=== PATIENT | male | born 1950 | race Caucasian/White ===

== ENCOUNTER 2017-08-10 16:03 | Emergency (ER) | payer MEDICARE, OTHER ==
--- NOTE | 2017-08-10 16:43 | EDM.PDOC ---
ED HPI GENERAL MEDICAL PROBLEM - General Chief Complaint: Abdominal Pain Stated Complaint: R SIDE ABD PAIN Time Seen by Provider: 08/10/17 16:38 Source of Information: Reports: Patient History Limitations: Reports: No Limitations - History of Present Illness INITIAL COMMENTS - FREE TEXT/NARRATIVE: Patient is a 67-year-old male who presents to presents the ED complaining of right lower quadrant abdominal pain. Symptoms started approximately one week ago. Patient was evaluated this past Saturday with x-ray of the abdomen obtained and started on MiraLAX 2 scoops twice a day for 5 days then one scoop daily. Patient states have become more runny. The pain to his right lower quadrant has persisted. Patient was informed by PCP that this maybe related to his appendix. Patient has been experiencing intermittent fever like symptoms. He was told by his PCP Dr. Henry if he should have any worsening symptoms to come to the ED. Patient states the pain has grown increasingly worse. He's had intermittent episodes of nausea with no emesis. No dysuria, no chest pain, no shortness breath, no body aches, or blood in his stool/urine. He has a history of hernia repair. This was a umbilical hernia with mesh placement. Right Abdomen Pain Score (Numeric/FACES): 6 - Related Data Allergies Allergy/AdvReac Type Severity Reaction Status Date / Time acetaminophen [From Tylenol] Allergy Cannot Verified 12/10/13 14:55 Remember ketoprofen [From Orudis] Allergy Cannot Verified 12/10/13 14:55 Remember Home Meds: Home Meds Aspirin 1 tab PO DAILY 08/10/17 [History] Fish Oil/[place]-3 Fatty Acids [Fish Oil 1,000 MG] 1 each PO DAILY 08/10/17 [ History] Fluticasone Propionate [Flonase] 1 tab PO DAILY 08/10/17 [History] Ibuprofen 600 mg PO BEDTIME 08/10/17 [History] Lisinopril [Prinivil] 10 mg PO DAILY 08/10/17 [History] Loratadine/Pseudoephedrine [Claritin-D 12 Hour] 1 tab PO Q12HR 08/10/17 [History ] Omeprazole Magnesium [Prilosec Otc] 20 mg PO DAILY 08/10/17 [History] Simvastatin 1 tab PO DAILY 08/10/17 [History] Tamsulosin [Tamsulosin 24 Hr] 0.4 mg PO DAILY 08/10/17 [History] Ubidecarenone [Co Q-10] 100 mg PO DAILY 08/10/17 [History] Past Medical History Cardiovascular History: Reports: High Cholesterol, Hypertension Gastrointestinal History: Reports: Chronic Constipation, GERD Genitourinary History: Reports: Other (See Below) Other Genitourinary History: prostate issues Musculoskeletal History: Reports: Arthritis - Past Surgical History HEENT Surgical History: Reports: Naso-Sinus Surgery, Other (See Below) Other HEENT Surgeries/Procedures: ues nasal spray prn GI Surgical History: Reports: Hernia, Abdominal Social & Family History - Tobacco Use Smoking Status *Q: Never Smoker - Caffeine Use Caffeine Use: Reports: Coffee, Soda - Recreational Drug Use Recreational Drug Use: No ED ROS GENERAL - Review of Systems Review Of Systems: ROS reveals no pertinent complaints other than HPI. ED EXAM, GI/ABD - Physical Exam Exam: See Below Exam Limited By: No Limitations General Appearance: Alert, WD/WN, No Apparent Distress Ears: Hearing Grossly Normal Nose: Normal Inspection Throat/Mouth: Normal Inspection, Normal Oropharynx, Normal Voice, No Airway Compromise Head: Atraumatic, Normocephalic Neck: Normal Inspection, Supple Respiratory/Chest: No Respiratory Distress, Lungs Clear, Normal Breath Sounds, No Accessory Muscle Use, Chest Non-Tender Cardiovascular: Normal Peripheral Pulses, Regular Rate, Rhythm GI/Abdominal Exam: Normal Bowel Sounds, Soft, No Organomegaly, No Distention, Tender (Positive McBurney's point. Negative Harrell sign.) (Male) Exam: Deferred (No discomfort to the testicles or scrotum.) Rectal (Males) Exam: Deferred (No blood within the stool.) Back Exam: Normal Inspection. No: CVA Tenderness (L), CVA Tenderness (R) Extremities: Normal Inspection, Normal Range of Motion, Non-Tender, No Pedal Edema Neurological: Alert, Oriented, CN II-XII Intact, Normal Cognition, No Motor/ Sensory Deficits Psychiatric: Normal Affect, Normal Mood Skin Exam: Warm, Dry, Intact, Normal Color Course - Vital Signs Last Recorded V/S: Last Vital Signs Temp 97.0 F 08/10/17 16:19 Pulse 65 08/10/17 16:19 Resp 20 08/10/17 16:19 BP 155/93 H 08/10/17 16:19 Pulse Ox 97 08/10/17 16:19 - Orders/Labs/Meds Orders: Active Orders 24 hr Category Date Time Status Peripheral IV Care [RC] . DIRECTED Care 08/10/17 16:44 Active UA W/MICROSCOPIC [URIN] Stat Lab 08/10/17 17:30 Ordered Peripheral IV Insertion Adult [OM.PC] Stat Oth 08/10/17 16:43 Ordered Labs: Laboratory Tests 08/10/17 08/10/17 08/10/17 Range/Units 17:30 17:30 17:30 WBC 6.83 (4.23-9.07) K/mm3 RBC 5.17 (4.63-6.08) M/mm3 Hgb 15.5 (13.7-17.5) gm/L Hct 45.9 (40.1-51.0) % MCV 88.8 (79.0-92.2) fl MCH 30.0 (25.7-32.2) pg MCHC 33.8 (32.2-35.5) g/dl RDW Std Deviation 42.2 (35.1-43.9) fL Plt Count 264 (163-337) K/mm3 MPV 9.5 (9.4-12.3) fl Neutrophils % (Manual) 61 H (40-60) % Band Neutrophils % 0 (0-10) % Lymphocytes % (Manual) 27 (20-40) % Atypical Lymphs % 0 % Monocytes % (Manual) 6 (2-10) % Eosinophils % (Manual) 4 (0.8-7.0) % Basophils % (Manual) 2 H (0.2-1.2) Platelet Estimate Adequate RBC Morph Comment Normal Sodium 143 (136-145) mEq/L Potassium 4.1 (3.5-5.1) mEq/L Chloride 107 (98-107) mEq/L Carbon Dioxide 26 (21-32) mEq/L Anion Gap 14.1 (5-15) BUN 14 (7-18) mg/dL Creatinine 1.3 (0.7-1.3) mg/dL Est Cr Clr Drug Dosing 60.34 mL/min Estimated GFR (MDRD) 55 (>60) mL/min BUN/Creatinine Ratio 10.8 L (14-18) Glucose 93 (80-115) mg/dL Calcium 9.1 (8.5-10.1) mg/dL Total Bilirubin 0.9 (0.2-1.0) mg/dL AST 24 (15-37) U/L ALT 33 (16-63) U/L Alkaline Phosphatase 83 (46-116) U/L C-Reactive Protein (<1.0) mg/dL Total Protein 7.8 (6.4-8.2) g/dl Albumin 4.4 (3.4-5.0) g/dl Globulin 3.4 gm/dL Albumin/Globulin Ratio 1.3 (1-2) Urine Color Yellow (Yellow) Urine Appearance Clear (Clear) Urine pH 6.5 (5.0-8.0) Ur Specific [place] > or = 1.030 (1.005-1.030) Urine Protein Negative (Negative) Urine Glucose (UA) Negative (Negative) Urine Ketones Negative (Negative) Urine Occult Blood Negative (Negative) Urine Nitrite Negative (Negative) Urine Bilirubin Negative (Negative) Urine Urobilinogen 0.2 (0.2-1.0) Ur Leukocyte Esterase Negative (Negative) Urine RBC 0-5 (0-5) /hpf Urine WBC 0-5 (0-5) /hpf Ur Epithelial Cells 0-5 (0-5) /hpf Urine Bacteria Occasional (FEW) /hpf Urine Mucus Moderate H (FEW) /hpf 08/10/17 Range/Units 17:30 WBC (4.23-9.07) K/mm3 RBC (4.63-6.08) M/mm3 Hgb (13.7-17.5) gm/L Hct (40.1-51.0) % MCV (79.0-92.2) fl MCH (25.7-32.2) pg MCHC (32.2-35.5) g/dl RDW Std Deviation (35.1-43.9) fL Plt Count (163-337) K/mm3 MPV (9.4-12.3) fl Neutrophils % (Manual) (40-60) % Band Neutrophils % (0-10) % Lymphocytes % (Manual) (20-40) % Atypical Lymphs % % Monocytes % (Manual) (2-10) % Eosinophils % (Manual) (0.8-7.0) % Basophils % (Manual) (0.2-1.2) Platelet Estimate RBC Morph Comment Sodium (136-145) mEq/L Potassium (3.5-5.1) mEq/L Chloride (98-107) mEq/L Carbon Dioxide (21-32) mEq/L Anion Gap (5-15) BUN (7-18) mg/dL Creatinine (0.7-1.3) mg/dL Est Cr Clr Drug Dosing mL/min Estimated GFR (MDRD) (>60) mL/min BUN/Creatinine Ratio (14-18) Glucose (80-115) mg/dL Calcium (8.5-10.1) mg/dL Total Bilirubin (0.2-1.0) mg/dL AST (15-37) U/L ALT (16-63) U/L Alkaline Phosphatase (46-116) U/L C-Reactive Protein 0.5 (<1.0) mg/dL Total Protein (6.4-8.2) g/dl Albumin (3.4-5.0) g/dl Globulin gm/dL Albumin/Globulin Ratio (1-2) Urine Color (Yellow) Urine Appearance (Clear) Urine pH (5.0-8.0) Ur Specific [place] (1.005-1.030) Urine Protein (Negative) Urine Glucose (UA) (Negative) Urine Ketones (Negative) Urine Occult Blood (Negative) Urine Nitrite (Negative) Urine Bilirubin (Negative) Urine Urobilinogen (0.2-1.0) Ur Leukocyte Esterase (Negative) Urine RBC (0-5) /hpf Urine WBC (0-5) /hpf Ur Epithelial Cells (0-5) /hpf Urine Bacteria (FEW) /hpf Urine Mucus (FEW) /hpf Meds: Medications Discontinued Medications Generic Name Dose Route Start Last Admin Trade Name Freq PRN Reason Stop Dose Admin Diatrizoate Meglum/Diatrizoate Sod 90 ml 08/10/17 18:13 08/10/17 18:53 Gastrografin 37% PO 08/10/17 18:14 90 ml ONETIME ONE Administration Sodium Chloride 1,000 mls @ 150 mls/hr 08/10/17 16:45 08/10/17 17:34 Normal Saline IV 150 mls/hr ASDIRECTED NAVYA Administration Sodium Chloride 250 mls @ 80 mls/hr 08/10/17 18:15 08/10/17 18:54 Normal Saline IV 80 mls/hr ASDIRECTED NAVYA Administration Iopamidol 100 ml 08/10/17 18:13 08/10/17 18:53 Isovue-370 (76%) IVPUSH 08/10/17 18:14 100 ml ONETIME ONE Administration Iopamidol 25 ml 08/10/17 18:13 08/10/17 18:54 Isovue-370 (76%) IVPUSH 08/10/17 18:14 25 ml ONETIME ONE Administration Sodium Chloride 10 ml 08/10/17 16:43 08/10/17 18:55 Saline Flush FLUSH 10 ml ASDIRECTED PRN Administration Keep Vein Open - Re-Assessments/Exams Free Text/Narrative Re-Assessment/Exam: Peripheral IV started with IV fluids. Initial labs and studies will include: CBC, chem 14, CRP, and UA. Labs reviewed: CBC and chemistry panel essentially normal. CRP 0.5. UA was negative for any concerning findings. 08/10/17 19:33 CT abdomen and pelvis impression: Findings which are felt to be incidental as described above. Nothing acute is appreciated on CT study of the abdomen and pelvis. Discussed labs and CT findings with the patient. We'll discharge patient home with instructions as documented. Departure - Departure Time of Disposition: 19:34 Disposition: Home, Self-Care 01 Condition: Good Clinical Impression: Abdominal pain in male - Discharge Information Instructions: Abdominal Pain, Adult, [id number] Referrals: Ezequiel Quiroz MD [Primary Care Provider] - Forms: ED Department Discharge Additional Instructions: Follow-up with PCP this following week. Continue taking the MiraLAX. Suggest decreasing the dose to one capful twice a day to see if this improves or diarrhea. Push the fluids. Refrain from any activities that cause worsening pain. Return to the ED if you develop any new or worsening symptoms. - My Orders Last 24 Hours: My Active Orders 08/10/17 16:43 Peripheral IV Insertion Adult [OM.PC] Stat 08/10/17 16:44 Peripheral IV Care [RC] . DIRECTED 08/10/17 17:30 UA W/MICROSCOPIC [URIN] Stat - Assessment/Plan Last 24 Hours: My Active Orders 08/10/17 16:43 Peripheral IV Insertion Adult [OM.PC] Stat 08/10/17 16:44 Peripheral IV Care [RC] . DIRECTED 08/10/17 17:30 UA W/MICROSCOPIC [URIN] Stat
[2017-08-10] MEDS ORDERED: Sodium Chloride 0.9% 1,000 ML IV SCH (16:45)
[2017-08-10] MEDS: Sodium Chloride 0.9% 10 ML Syringe FLUSH PRN ×2 (17:35→18:55)
[2017-08-10] MEDS ORDERED: Diatrizoate Meglumine/Diatrizoate Sodium 37% 120 ML Bottle PO ONE (18:13)
[2017-08-10] MEDS ORDERED: Iopamidol 755 MG/ML 50 ML Bottle IVPUSH ONE (18:13)
[2017-08-10] MEDS ORDERED: Iopamidol 755 Mg/ML 100 ML Bottle IVPUSH ONE (18:13)
[2017-08-10] MEDS ORDERED: Sodium Chloride 0.9% 250 ML IV SCH (18:15)
--- NOTE | 2017-08-10 19:18 | CT ---
CT abdomen and pelvis Technique: Multiple axial sections were obtained from above the dome of the diaphragm inferiorly through the pubic symphysis. Intravenous and oral contrast was utilized. Comparison: No prior CT exam of the abdomen or pelvis. Findings: Slight atelectasis or scarring is seen within the left lung base. Liver shows no focal parenchymal abnormality. Spleen appears within normal limits. Adrenal glands show no nodule. Pancreas is within normal limits. 3 low density findings seen within the left kidney. 2 of these have Hounsfield unit measurements of cysts. Third lesion does not have Hounsfield unit measurements of a cyst but most likely represents a slightly hemorrhagic cyst. Largest cyst measures 6.7 cm. 4 small low density findings are seen within the right kidney. The smaller cyst felt to represent a combination of simple cysts and hemorrhagic cysts. Several small scattered nonobstructing calculi are seen within both kidneys. Areas of parenchymal scarring are seen within both kidneys. No ureteral dilatation is seen of either kidney. Delayed images shows contrast excretion from both kidneys into nondilated ureters as well as contrast seen within the bladder. Pancreas is normal. Gallbladder contains no calcified gallstones. Aorta shows no aneurysmal dilatation. No retroperitoneal adenpathy is seen. No mesenteric abnormalities are seen. Appendix is felt to be partially seen and appears normal in size. No pelvic mass or adenopathy is seen. No free fluid or inflammatory change is seen. Scattered degenerative change is seen within the spine most prominent at L5-S1 with vacuum phenomena. Impression: 1. Findings which are felt to be incidental as described above. Nothing acute is appreciated on CT study of the abdomen and pelvis. Diagnostic code #2
== END 2017-08-10 19:50 | disposition home or self-care (01) ==
LOC: JD.ED 16:03
DX: R10.31 Right lower quadrant pain (principal); E78.00 Pure hypercholesterolemia, unspecified; I10 Essential (primary) hypertension; Z88.6 Allergy status to analgesic agent; Z88.5 Allergy status to narcotic agent; Z79.899 Other long term (current) drug therapy
CPT/HCPCS: 36415; 74177; 80053; 81001; 85025; 86140; 96360; 96361; 99284; J7040; J7050; Q9963; Q9967; 99283

== ENCOUNTER 2022-09-23 21:55 | Emergency (ER) | payer MEDICARE, OTHER ==
[2022-09-23] MEDS ORDERED: Propofol 200 MG/20 ML SDV IVPUSH ONE (23:45)
[2022-09-24] MEDS ORDERED: HYDROmorphone 0.5 MG/0.5 ML Syringe IVPUSH ONE ×3 (01:33→07:10)
[2022-09-24] MEDS ORDERED: Ondansetron 4 MG/2 ML SDV IVPUSH ONE (01:34)
[2022-09-24] MEDS ORDERED: Ketorolac 30 MG/ML SDV IVPUSH ONE (02:25)
[2022-09-24] MEDS ORDERED: Propofol 200 MG/20 ML SDV ONE (05:04)
[2022-09-24] MEDS ORDERED: fentaNYL 100 MCG/2 ML SDV ONE (05:04)
[2022-09-24] MEDS ORDERED: Midazolam 1 MG/ML 2 ML SDV ONE (05:05)
[2022-09-24] MEDS ORDERED: Propofol 200 MG/20 ML SDV IVPUSH ONE (05:10)
[2022-09-24] MEDS ORDERED: fentaNYL 100 MCG/2 ML SDV IVPUSH ONE (05:10)
[2022-09-24] MEDS ORDERED: Midazolam 1 MG/ML 2 ML SDV IVPUSH ONE (05:10)
== END 2022-09-24 08:24 | disposition home or self-care (01) ==
LOC: JD.ED 21:55
DX: S43.022A Posterior subluxation of left humerus, initial encounter (principal); E78.00 Pure hypercholesterolemia, unspecified; K21.9 Gastro-esophageal reflux disease without esophagitis; Z88.6 Allergy status to analgesic agent; Z79.82 Long term (current) use of aspirin; Z79.899 Other long term (current) drug therapy; Y04.0XXA Assault by unarmed brawl or fight, initial encounter
CPT/HCPCS: 73030; 73200; 96374; 96375; 96376; 99284; J1170; J1885; J2250; J2405; J2704; J3010; 01620

== ENCOUNTER 2022-11-09 13:23 | Emergency (ER) | payer MEDICARE, OTHER ==
[2022-11-09] MEDS ORDERED: Sodium Chloride 0.9% 10 ML Syringe FLUSH PRN (13:31)
[2022-11-09] MEDS ORDERED: Ondansetron 4 MG/2 ML SDV IVPUSH ONE (13:45)
[2022-11-09 13:53] LABS: HEMATOCRIT 40.6 % (40.1-51.0); HEMOGLOBIN 13.6 gm/dl (13.7-17.5); MEAN CORPUSCULAR HEMOGLOBIN 31.8 pg (25.7-32.2); MEAN CORPUSCULAR HGB CONC 33.5 g/dl (32.2-35.5); MEAN CORPUSCULAR VOLUME 94.9 fl (79.0-92.2); MEAN PLATELET VOLUME 9.3 fl (9.4-12.3); PLATELET COUNT,PLT 51 K/mm3 (163-337); RED BLOOD CELL COUNT 4.28 M/mm3 (4.63-6.08)
[2022-11-09 13:54] LABS: WHITE BLOOD CELL COUNT,WBC 124.23 K/mm3 (4.23-9.07)
[2022-11-09 14:02] LABS: INR 1.26; PROTHROMBIN TIME 13.3 SECONDS (9.7-12.0)
[2022-11-09 14:04] LABS: PTT,PARTIAL THROMBOPLSTIN TIME 30.1 SECONDS (21.7-31.4)
[2022-11-09 14:22] LABS: A/G RATIO 0.8 (1-2); ALBUMIN 3.4 g/dl (3.4-5.0); ANION GAP 16.5 (5-15); BILIRUBIN TOTAL 1.1 mg/dL (0.2-1.0); BUN/CREATININE RATIO 6.1 (14-18); CALCIUM 9.1 mg/dL (8.5-10.1); CREATININE 2.3 mg/dL (0.7-1.3); EST CRCL DRUG DOSING (CG) 32.8 mL/min; MAGNESIUM 2.1 mg/dL (1.8-2.4); POTASSIUM,K 3.5 mEq/L (3.5-5.1); PROTEIN TOTAL,TP 7.5 g/dl (6.4-8.2)
[2022-11-09] MEDS ORDERED: Sodium Chloride 0.9% 1,000 ML IV ONE (14:28)
[2022-11-09 14:33] LABS: BAND PERCENT MAN 4 % (0-10); BASOPHILS PERCENT MAN 2 (0.2-1.2); EOSINOPHILS PERCENT MAN 1 % (0.8-7.0); LYMPHOCYTES % ATYPICAL MANUAL 0 %; LYMPHOCYTES PERCENT MAN 22 % (20-40); METAMYELOCYTE PERCENT MAN 2; MONOCYTES PERCENT MAN 7 % (2-10); PROMYELOCYTE PERCENT MAN 53
[2022-11-09 14:35] LABS: ANISOCYTOSIS 2+ MODERATE; PLATELET COUNT ESTIMATE DECREASED
[2022-11-09] MEDS ORDERED: Sodium Chloride 0.9% 10 ML Syringe FLUSH ONE (15:08)
[2022-11-09] MEDS ORDERED: Iopamidol 612 MG/ML 100 ML Bottle IVPUSH ONE (15:08)
[2022-11-09] MEDS ORDERED: cefTRIAXone 2 GM in Sodium Chloride 0.9% 100 ML IV ONE (15:18)
== END 2022-11-09 18:15 ==
LOC: JD.ED 13:23
DX: I26.93 Single subsegmental thrombotic pulmonary embolism without acute cor pulmonale (principal); J18.9 Pneumonia, unspecified organism; N28.89 Other specified disorders of kidney and ureter; R91.1 Solitary pulmonary nodule; D72.829 Elevated white blood cell count, unspecified; E78.00 Pure hypercholesterolemia, unspecified; I10 Essential (primary) hypertension; K21.9 Gastro-esophageal reflux disease without esophagitis; Z88.8 Allergy status to other drugs, medicaments and biological substances; Z79.899 Other long term (current) drug therapy
CPT/HCPCS: 36415; 71045; 71045-26; 71275; 71275-26; 74177; 74177-26; 80053; 83605; 83735; 83880; 84484; 85007; 85027; 85379; 85610; 85730; 86140; 87040; 93005; 93010; 96361; 96365; 96375; 99285; 99285-25; J0696; J2405; J3490; J7030; Q9967

== ENCOUNTER 2024-05-27 15:57 | Emergency (ER) | payer MEDICARE ==
[2024-05-27] MEDS ORDERED: Sodium Chloride 0.9% 10 ML Syringe FLUSH PRN (16:36)
[2024-05-27] MEDS: Acetaminophen 325 MG Tab PO ONE (17:22)
[2024-05-27] MEDS: Sodium Chloride 0.9% 1,000 ML IV ONE ×2 (17:22→19:38)
[2024-05-27 17:42] LABS: HEMATOCRIT 24.8 % (42.0-52.0); HEMOGLOBIN 8.2 gm/dl (14.0-18.0); MEAN CORPUSCULAR HEMOGLOBIN 29.5 pg (28.0-32.0); MEAN CORPUSCULAR HGB CONC 33.1 g/dl (32.0-36.0); MEAN CORPUSCULAR VOLUME 89.2 fl (83.0-99.0); MEAN PLATELET VOLUME 10.1 fl (9.4-12.4); NRBC ABSOLUTE 0.03 (0.00-0.02); NRBC PERCENT 2.9 % (0.0-0.2); PLATELET COUNT,PLT 55 K/mm3 (150-400); RED BLOOD CELL COUNT 2.78 M/mm3 (4.52-5.90)
[2024-05-27 17:58] LABS: INR 1.12; PROTHROMBIN TIME 11.8 SECONDS (9.7-12.0)
[2024-05-27 18:02] LABS: A/G RATIO 0.6 (1-2); ALBUMIN 2.7 g/dl (3.4-5.0); ANION GAP 16.7 (5-15); BILIRUBIN TOTAL 1.1 mg/dL (0.2-1.0); BUN/CREATININE RATIO 11.5 (14-18); C-REACTIVE PROTEIN 19.81 mg/dL (<0.30); CALCIUM 8.8 mg/dL (8.5-10.1); CREATININE 2.6 mg/dL (0.7-1.3); EST CRCL DRUG DOSING (CG) 27.75 mL/min; POTASSIUM,K 3.7 mEq/L (3.5-5.1); PROTEIN TOTAL,TP 7.5 g/dl (6.4-8.2)
[2024-05-27 18:04] LABS: LACTIC ACID 1.5 mmol/L (0.4-2.0)
[2024-05-27 18:09] LABS: WHITE BLOOD CELL COUNT,WBC 1.02 K/mm3 (3.9-11.3)
[2024-05-27 18:49] LABS: BAND PERCENT MAN 0 % (0-10); BASOPHILS PERCENT MAN 0 (0.2-1.2); EOSINOPHILS PERCENT MAN 0 % (0.8-7.0); LYMPHOCYTES % ATYPICAL MANUAL 0 %; LYMPHOCYTES PERCENT MAN 66 % (20-40); MONOCYTES PERCENT MAN 4 % (2-10)
[2024-05-27 18:50] LABS: ANISOCYTOSIS 2+ MODERATE; OVALOCYTES 2+ MODERATE; PLATELET COUNT ESTIMATE DECREASED; POIKILOCYTOSIS 2+ MODERATE; TOXIC GRANULATION FEW
[2024-05-27] MEDS: Cefepime 2 GM Vial IVPUSH ONE (19:37)
== END 2024-05-27 20:30 ==
LOC: JD.ED 15:57
DX: D70.9 Neutropenia, unspecified (principal); R50.81 Fever presenting with conditions classified elsewhere; I10 Essential (primary) hypertension; E78.00 Pure hypercholesterolemia, unspecified; K21.9 Gastro-esophageal reflux disease without esophagitis; Z96.612 Presence of left artificial shoulder joint; Z88.8 Allergy status to other drugs, medicaments and biological substances; Z79.899 Other long term (current) drug therapy
CPT/HCPCS: 36415; 70450; 71045; 80053; 83605; 84550; 85007; 85027; 85610; 86140; 87040; 87077; 87154; 87186; 87428; 93005; 96361; 96374; 99285; A9270; J0692; J7030

== ENCOUNTER 2024-08-29 13:05 | Emergency (ER) | payer MEDICARE, OTHER ==
[2024-08-29] MEDS ORDERED: Sodium Chloride 0.9% 10 ML Syringe FLUSH PRN (14:00)
[2024-08-29 14:35] LABS: HEMATOCRIT 27.7 % (42.0-52.0); HEMOGLOBIN 8.8 gm/dl (14.0-18.0); MEAN CORPUSCULAR HEMOGLOBIN 33.1 pg (28.0-32.0); MEAN CORPUSCULAR HGB CONC 31.8 g/dl (32.0-36.0); MEAN PLATELET VOLUME 10.6 fl (9.4-12.4); PLATELET COUNT,PLT 103 K/mm3 (150-400); RED BLOOD CELL COUNT 2.66 M/mm3 (4.52-5.90); WHITE BLOOD CELL COUNT,WBC 4.34 K/mm3 (3.9-11.3)
[2024-08-29 14:52] LABS: MEAN CORPUSCULAR VOLUME 104.1 fl (83.0-99.0)
[2024-08-29 14:55] LABS: INR 1.02; PROTHROMBIN TIME 10.8 SECONDS (9.7-12.0)
[2024-08-29 14:58] LABS: A/G RATIO 0.8 (1-2); ALBUMIN 3.1 g/dl (3.4-5.0); ANION GAP 14.8 (5-15); BILIRUBIN TOTAL 0.7 mg/dL (0.2-1.0); C-REACTIVE PROTEIN 6.18 mg/dL (<0.30); CALCIUM 8.5 mg/dL (8.5-10.1); CREATININE 1.5 mg/dL (0.7-1.3); EST CRCL DRUG DOSING (CG) 48.86 mL/min; POTASSIUM,K 3.8 mEq/L (3.5-5.1); PROTEIN TOTAL,TP 7.2 g/dl (6.4-8.2)
[2024-08-29 15:01] LABS: LACTIC ACID 1.1 mmol/L (0.4-2.0)
[2024-08-29] MEDS: oxyCODONE 5 MG Tab PO ONE (16:53)
[2024-08-29 17:25] LABS: APPEARANCE,URINE CLEAR (Clear); BILIRUBIN,URINE NEGATIVE (Negative); COLOR,URINE YELLOW (Yellow); GLUCOSE,URINE NEGATIVE (Negative); KETONES,URINE NEGATIVE (Negative); LEUKOCYTE ESTERASE,URINE 1+ (Negative); NITRITE,URINE NEGATIVE (Negative); OCCULT BLOOD,URINE NEGATIVE (Negative); PH,URINE 6.5 (5.0-8.0); PROTEIN,URINE 1+ (Negative); UROBILINOGEN,URINE 0.2 (0.2-1.0)
[2024-08-29 17:38] LABS: BACTERIA,URINE FEW /hpf (FEW); EPITHELIAL CELLS,URINE 0-5 /hpf (0-5); RBC,URINE 0-5 /hpf (0-5)
[2024-08-29 17:39] LABS: MUCUS,URINE FEW /hpf (FEW)
[2024-08-29] MEDS: Cephalexin 500 MG Cap PO ONE (18:28)
[2024-08-29 18:53] LABS: ANISOCYTOSIS 2+ MODERATE; BAND PERCENT MAN 1 % (0-10); BASOPHILS PERCENT MAN 2 (0.2-1.2); EOSINOPHILS PERCENT MAN 1 % (0.8-7.0); LYMPHOCYTES % ATYPICAL MANUAL 0 %; LYMPHOCYTES PERCENT MAN 15 % (20-40); MONOCYTES PERCENT MAN 13 % (2-10); POIKILOCYTOSIS 1+ SLIGHT
[2024-08-29 18:54] LABS: MICROCYTOSIS 2+ MODERATE; TEARDROP CELLS 1+ SLIGHT
[2024-08-29 18:55] LABS: OVALOCYTES 1+ SLIGHT
[2024-08-29 18:56] LABS: PLATELET COUNT ESTIMATE DECREASED; TOXIC GRANULATION 1+ SLIGHT
== END 2024-08-29 18:57 | disposition home or self-care (01) ==
LOC: JD.ED 13:05
DX: N30.00 Acute cystitis without hematuria (principal); I10 Essential (primary) hypertension; K21.9 Gastro-esophageal reflux disease without esophagitis; E78.00 Pure hypercholesterolemia, unspecified; Z88.8 Allergy status to other drugs, medicaments and biological substances; Z79.899 Other long term (current) drug therapy
CPT/HCPCS: 36415; 71045; 72020; 73502; 80053; 81001; 83605; 85007; 85027; 85610; 86140; 87040; 87154; 99283; A9270; 87077; 87186; 99284

== ENCOUNTER 2024-11-20 08:15 | Emergency (ER) | payer MEDICARE, OTHER ==
[2024-11-20] MEDS: Ondansetron 4 MG/2 ML SDV IVPUSH ONE (08:28)
[2024-11-20 08:33] LABS: BASE EXCESS ARTERIAL -2.1 (-2-2.0); BICARBONATE,ARTERIAL 19.5 meq/L (22.0-26.0); O2 SATURATION ARTERIAL 95.2 % (96.0-97.0); PCO2 ARTERIAL 25.0 mmHg (35.0-45.0); PO2 ARTERIAL 79.0 mmHg (80.0-100.0)
[2024-11-20] MEDS: VANCOmycin 2 GM/400 ML 2 GM in Premix Bag 1 BAG IV ONE (09:04)
[2024-11-20 09:11] LABS: BASOPHILS ABSOLUTE AUTO 0.0 K/mm3 (0.0-0.2); BASOPHILS PERCENT AUTO 0.1 % (0.0-1.0); EOSINOPHILS ABSOLUTE AUTO 0.0 K/mm3 (0.0-0.4); EOSINOPHILS PERCENT AUTO 0.0 % (0.0-6.0); IMMATURE GRAN ABSOLUTE AUTO 0.16 K/mm3 (0.00-0.05); IMMATURE GRAN PERCENT AUTO 1.2 % (0.0-0.4); LYMPHOCYTES ABSOLUTE AUTO 0.9 K/mm3 (1.0-4.8); LYMPHOCYTES PERCENT AUTO 6.3 % (24.0-44.0); MEAN PLATELET VOLUME 10.2 fl (9.4-12.4); MONOCYTES ABSOLUTE AUTO 0.7 K/mm3 (0.0-0.8); MONOCYTES PERCENT AUTO 4.7 % (0.0-8.0); NEUTROPHILS ABSOLUTE AUTO 12.0 K/mm3 (1.8-7.7); NEUTROPHILS PERCENT AUTO 87.7 % (41.0-71.0); NRBC ABSOLUTE 0.00 (0.00-0.02); NRBC PERCENT 0.0 % (0.0-0.2); PLATELET COUNT,PLT 96 K/mm3 (150-400); RED BLOOD CELL COUNT 3.74 M/mm3 (4.52-5.90); WHITE BLOOD CELL COUNT,WBC 13.73 K/mm3 (3.9-11.3)
[2024-11-20 09:30] LABS: INR 1.03
[2024-11-20 09:32] LABS: A/G RATIO 0.5 (1-2); ALANINE AMINOTRANSFERASE,ALT 65.0 U/L (16-63); ASPARTATE AMNIOTRANSFERASE,AST 41.0 U/L (15-37); BILIRUBIN TOTAL 0.8 mg/dL (0.2-1.0); BLOOD UREA NITROGEN,BUN 30.0 mg/dL (7-18); CARBON DIOXIDE,CO2 22.0 mEq/L (21-32); CHLORIDE,CL 103.0 mEq/L (98-107); CREATINE KINASE,CK 74.0 U/L (39-308); CREATININE 2.0 mg/dL (0.7-1.3); EST CRCL DRUG DOSING (CG) 36.64 mL/min; ESTIMATED GFR 35.0 mL/min (>60); GLUCOSE RANDOM 114.0 mg/dL (70-99); POTASSIUM,K 3.7 mEq/L (3.5-5.1); PROTEIN TOTAL,TP 6.7 g/dl (6.4-8.2); SODIUM,NA 135.0 mEq/L (136-145)
[2024-11-20 09:40] LABS: TROPONIN I HIGH SENSITIVITY 81.0 pg/mL (<=76)
[2024-11-20] MEDS: Iopamidol 612 MG/ML 100 ML Bottle IVPUSH ONE (10:11)
[2024-11-20] MEDS: Sodium Chloride 0.9% 10 ML Syringe FLUSH ONE (10:11)
[2024-11-20 11:26] LABS: APPEARANCE,URINE TURBID (Clear); GLUCOSE,URINE NEGATIVE (Negative); OCCULT BLOOD,URINE 3+ (Negative)
[2024-11-20 11:47] LABS: LACTIC ACID 1.0 mmol/L (0.4-2.0)
[2024-11-20 12:15] LABS: EPITHELIAL CELLS,URINE 0-5 /hpf (0-5)
== END 2024-11-20 13:25 ==
LOC: JD.ED 08:15
DX: M46.44 Discitis, unspecified, thoracic region (principal); I10 Essential (primary) hypertension; E78.00 Pure hypercholesterolemia, unspecified; K21.9 Gastro-esophageal reflux disease without esophagitis; M19.90 Unspecified osteoarthritis, unspecified site; Z88.8 Allergy status to other drugs, medicaments and biological substances; Z79.899 Other long term (current) drug therapy; Z79.02 Long term (current) use of antithrombotics/antiplatelets; Z79.01 Long term (current) use of anticoagulants
CPT/HCPCS: 36415; 36600; 71260; 74177; 80053; 81001; 82550; 82803; 83605; 83690; 83735; 84484; 85025; 85610; 86850; 86900; 86901; 87040; 87077; 87154; 87186; 96361; 96365; 96366; 96375; 99285; A9270; C1758; J0692; J2405; J3372; J7030; Q9967